=== PATIENT | female | born 1935 | race Caucasian/White ===

== ENCOUNTER 2017-05-13 15:32 | Inpatient (IN) | payer MEDICARE, BC ==
[~2017-05-13 15:32] MED LIST: CALCIUM + D T1 UDTAB; CENTRUM SILVER1 TA; COREG25 M1 PO; COUMADIN5 MG; GLIMEPIRIDE1 MG; HYDROCHLOROTHIA25 M1 PO; LANTUS100 UNITS/ SC; LISINOPRIL30 M1 PO; LOPRESSOR50 M1 PO; METFORMIN HCL500 MG; NOLVADEX20 MG; NORVASC10 M2 PO; POTASSIUM CHLO10 ME1 PO; POTASSIUM CHLO10 ME3 PO; PRAVASTATIN SOD20 M1 PO; QUINAPRIL40 MG; SYNTHROID75 MC1 PO; VISION1 TAB
[2017-05-13] MEDS ORDERED: VITAMIN D31000 UNI3 PO (16:04)
[2017-05-13] MEDS ORDERED: MULTIVITAMIN PO (16:04)
[2017-05-13] MEDS ORDERED: ELIQUIS2.5 M1 PO (16:04)
[2017-05-14 03:36] LABS: URINE BILIRUBIN NEGATIVE (NEG); URINE BLOOD SMALL (NEG); URINE GLUCOSE (UA) NEGATIVE (NEG); URINE KETONE NEGATIVE (NEG); URINE LEUKOCYTE ESTERASE NEGATIVE (NEG); URINE NITRITE NEGATIVE (NEG); URINE PROTEIN NEGATIVE (NEG)
[2017-05-14 04:05] LABS: URINE APPEARANCE CLEAR; URINE COLOR YELLOW
[2017-05-14 04:07] LABS: URINE BACTERIA 2+; URINE EPITHELIAL CELLS RARE /[HPF] (0-10); URINE RBC 0 /[HPF] (0-5)
[2017-05-14 08:52] LABS: BASO % 0.1 % (0-2); EOS % 0.1 % (0-7); HCT-HEMATOCRIT 35.5 % (34.0-49.0); HGB-HEMOGLOBIN 11.5 gm/dl (12.0-15.5); IMMATURE GRANULOCYTES ABSOLUTE 0.11 tho/cmm (0-0.03); IMMATURE GRANULOCYTES PERCENT 1.4 % (0-0.3); LYMPH % 8.2 % (20-45); LYMPH ABSOLUTE COUNT 0.6 tho/cmm (0.8-4.5); MCH (MEAN CORPUSCULAR HGB) 29.9 pg (28.0-32.0); MCHC MEAN CORPUSCULAR HGB CONC 32.4 % (32.0-36.0); MCV (MEAN CELL VOLUME) 92.4 fl (82.0-96.0); MONO % 7.2 % (0-12); MONOCYTE ABSOLUTE COUNT 0.6 tho/cmm (0.0-1.2); NEUTROPHIL ABSOLUTE COUNT 6.3 tho/cmm (1.6-8.0); NEUTROPHIL-AUTOMATED 6.3 tho/cmm (1.6-8.0); PLATELET COUNT 265 tho/cmm (150-450); RED BLOOD COUNT 3.84 mil/cmm (4.00-5.20); RED CELL DISTRIBUTION WIDTH 16.5 % (12.4-16.4); WHITE BLOOD COUNT 7.6 tho/cmm (4.0-10.0)
[2017-05-14 08:54] LABS: INR 1.3 INR (0.9-1.1); PROTHROMBIN TIME 15.3 SECONDS (9.0-13.6)
[2017-05-14 09:05] LABS: ALB/GLOB RATIO 0.5 (0.8-2.0); ALBUMIN 2.2 g/dl (3.5-5.0); ALKALINE PHOSPHATASE 374 U/L (33-138); ALT/SGPT 35 U/L (12-78); ANION GAP 11 mmol/L (0-20); AST/SGOT 229 U/L (10-40); BILIRUBIN,DIRECT 0.2 mg/dl (0.0-0.3); BILIRUBIN,INDIRECT 0.3 mg/dL (0.0-1.0); BILIRUBIN,TOTAL 0.5 mg/dl (0-1.5); BLOOD UREA NITROGEN 47 mg/dl (6-24); CARBON DIOXIDE-VENOUS 26 mmol/L (22-32); CHLORIDE 110 mmol/l (96-110); CREATININE 1.56 mg/dl (0.50-1.10); GLUCOSE 116 mg/dL (70-110); SODIUM 143 mmol/L (135-145); eGFR VALUE FOR BLACK 35 mL/Min
[2017-05-14] MEDS ORDERED: LOPRESSOR50 M1 PO (12:40)
--- NOTE | 2017-05-14 19:33 | NUR ---
PT FAMILY APPROACHED BY DR. PETERSON (ONCOLOGY) ABOUT HER LIVER CANCER. HE SUGGESTED THEY DO NOT DO THE LIVER BIOPSY AND TRANSITION TO HOSPICE CARE. FAMILY WAS UNSURE ABOUT THIS AND WANTED TO DISCUSS IT WITH OTHER FAMILY MEMBERS. PT FLIPPED INTO AFIB. DR. VALIENTE NOTIFIED AND IV LOPRESSOR GIVEN. LATER IN THE AFTERNOON, FAMILY HAD DECIDED TO NOT DO THE LIVER BIOPSY BUT HAD NOT DECIDED ABOUT HOSPICE. PT STILL IN AFIB-IMS CONSULTED JESSICA. PALLIATIVE TEAM WAS GONE FOR THE DAY- BUT TELEPHONE ORDER FOR DNR/DNI PER FAMILY'S REQUEST. PT RATES REMAIN HIGH AND JESSICA HAS NOT SEEN BEFORE SHIFT CHANGE. ALL OF THIS INFORMATION WAS PASSED ALONG TO THE NIGHT NURSE.
[2017-05-15 06:45] LABS: ANION GAP 12 mmol/L (0-20); BLOOD UREA NITROGEN 45 mg/dl (6-24); CALCIUM 11.8 mg/dl (8.5-10.5); CARBON DIOXIDE-VENOUS 24 mmol/L (22-32); CHLORIDE 112 mmol/l (96-110); CREATININE 1.23 mg/dl (0.50-1.10); GLUCOSE 72 mg/dL (70-110); POTASSIUM 3.6 mmol/L (3.7-5.1); SODIUM 144 mmol/L (135-145); eGFR VALUE FOR BLACK 47 mL/Min
[2017-05-15 06:55] LABS: BASO % 0.2 % (0-2); EOS % 0.4 % (0-7); HCT-HEMATOCRIT 33.8 % (34.0-49.0); HGB-HEMOGLOBIN 10.8 gm/dl (12.0-15.5); IMMATURE GRANULOCYTES ABSOLUTE 0.15 tho/cmm (0-0.03); IMMATURE GRANULOCYTES PERCENT 1.8 % (0-0.3); LYMPH % 10.5 % (20-45); LYMPH ABSOLUTE COUNT 0.9 tho/cmm (0.8-4.5); MCH (MEAN CORPUSCULAR HGB) 29.6 pg (28.0-32.0); MCV (MEAN CELL VOLUME) 92.6 fl (82.0-96.0); MONO % 7.3 % (0-12); MONOCYTE ABSOLUTE COUNT 0.6 tho/cmm (0.0-1.2); NEUTROPHIL ABSOLUTE COUNT 6.7 tho/cmm (1.6-8.0); NEUTROPHIL-AUTOMATED 6.7 tho/cmm (1.6-8.0); NEUTROPHILS % 79.8 % (40-80); PLATELET COUNT 271 tho/cmm (150-450); RED BLOOD COUNT 3.65 mil/cmm (4.00-5.20); RED CELL DISTRIBUTION WIDTH 16.8 % (12.4-16.4); WHITE BLOOD COUNT 8.4 tho/cmm (4.0-10.0)
[2017-05-17 13:02] LABS: ANION GAP 15 mmol/L (0-20); BLOOD UREA NITROGEN 45 mg/dl (6-24); CALCIUM 10.4 mg/dl (8.5-10.5); CARBON DIOXIDE-VENOUS 19 mmol/L (22-32); CHLORIDE 121 mmol/l (96-110); GLUCOSE 192 mg/dL (70-110); MAGNESIUM 1.5 mg/dl (1.8-2.6); POTASSIUM 3.8 mmol/L (3.7-5.1); SODIUM 151 mmol/L (135-145); eGFR VALUE FOR BLACK 44 mL/Min
--- NOTE | 2017-05-17 21:27 | NUR ---
PT HAS NOT SLEPT FOR 2 DAYS, FINALLY ASLEEP. WILL CHECK 2100 GLUCOSE AT 2300 WHEN ASSESSMENT IS NEEDED TO GROUP CARES AND ALLOW FOR BETTER SLEEP.
[2017-05-18] MEDS ORDERED: PACERONE200 M1 PO (13:32)
[2017-05-18] MEDS ORDERED: TYLENOL325 M2 PO (13:34)
[2017-05-18] MEDS ORDERED: COLACE100 M1 PO (13:36)
[2017-05-18] MEDS ORDERED: MORPHINE S20 MG/1 M1 PO/SL (13:40)
[2017-05-18] MEDS ORDERED: LORAZEPAM2 MG/1 M4 PO/SL (13:41)
[2017-05-18] MEDS ORDERED: ZITHROMAX500 M2 PO (13:44)
== END 2017-05-18 14:44 | DRG 193 ==
LOC: 5WE 15:32 → PCUA 05-15 02:04
PROVIDERS: Family Medicine; Nurse Practitioner; Physician Assistant; ADMIT Family Medicine
PROC: 05H533Z Insertion of Infusion Device into Right Subclavian Vein, Percutaneous Approach (ICD-10-PCS; principal; 2017-05-14)
DX: J18.9 Pneumonia, unspecified organism (principal); E43 Unspecified severe protein-calorie malnutrition; N17.9 Acute kidney failure, unspecified; C78.7 Secondary malignant neoplasm of liver and intrahepatic bile duct; C78.00 Secondary malignant neoplasm of unspecified lung; E83.52 Hypercalcemia; I48.2 Chronic atrial fibrillation; E11.22 Type 2 diabetes mellitus with diabetic chronic kidney disease; Z85.3 Personal history of malignant neoplasm of breast; E03.9 Hypothyroidism, unspecified; Z79.01 Long term (current) use of anticoagulants; I12.9 Hypertensive chronic kidney disease with stage 1 through stage 4 chronic kidney disease, or unspecified chronic kidney disease; E78.5 Hyperlipidemia, unspecified; Z92.21 Personal history of antineoplastic chemotherapy; G89.29 Other chronic pain; N18.3 Chronic kidney disease, stage 3 (moderate); Z95.0 Presence of cardiac pacemaker; Z88.0 Allergy status to penicillin; Z79.4 Long term (current) use of insulin; Z85.828 Personal history of other malignant neoplasm of skin; R53.81 Other malaise; Z53.20 Procedure and treatment not carried out because of patient's decision for unspecified reasons; Z66 Do not resuscitate; Z68.22 Body mass index [BMI] 22.0-22.9, adult; Z51.5 Encounter for palliative care; Z91.81 History of falling
CPT/HCPCS: A9540; A9558; C1751; J0282; J0456; J0630; J0696; J1630; J1650; J1815; J3475; J3489; J7030; J7050